=== PATIENT | male | born 1955 | race Caucasian/White ===

== ENCOUNTER 2021-12-22 12:20 | Emergency (ER) | payer OTHER, MEDICARE ==
[~2021-12-22] VITALS: Ht 175.3 cm; Wt 86.4 kg
--- NOTE | 2021-12-22 12:50 | NUR ---
PT ROOMED IN BED 16 AND PLACED IN HOSPITAL GOWN. PT WITHOUT NECK OR BACK TENDERNESS AND WITHOUT BELLY PAIN. GLUCOSE TAKEN WITH RESULT 116. PT NOW BEING TAKEN TO HAVE CT.
[2021-12-22 13:15] VITALS: BP 150/72
--- NOTE | 2021-12-22 13:31 | NUR ---
EFREM Pollock at bedside
== END 2021-12-22 16:00 | disposition home or self-care (01) ==
LOC: ER 12:21
DX: S00.81XA Abrasion of other part of head, initial encounter (principal); S50.812A Abrasion of left forearm, initial encounter; S50.312A Abrasion of left elbow, initial encounter; S80.212A Abrasion, left knee, initial encounter; S60.512A Abrasion of left hand, initial encounter; G44.309 Post-traumatic headache, unspecified, not intractable; F07.81 Postconcussional syndrome; V19.9XXA Pedal cyclist (driver) (passenger) injured in unspecified traffic accident, initial encounter; Y93.89 Activity, other specified; Y92.89 Other specified places as the place of occurrence of the external cause; Y99.8 Other external cause status
CPT/HCPCS: 70450; 82948; 99284